=== PATIENT | female | born 1970 | race Caucasian/White ===

== ENCOUNTER 2019-06-04 18:17 | Observation (INO) ==
[2019-06-04 18:31] LABS: Basophils # 0.1 K/mm3 (0-0.2); Basophils % 0.8 % (0.1-2.0); Eosinophils # 0.2 K/mm3 (0.0-0.4); Eosinophils % 2.3 % (0.1-12.0); Hematocrit 40.3 % (37.0-47.0); Hemoglobin 13.3 g/dL (12.2-16.2); Lymphocytes # 4.5 K/mm3 (0.7-4.5); Lymphocytes % 50.1 % (10-50); Mean Corpuscular HGB Conc 32.9 g/dL (31.8-35.4); Mean Corpuscular Volume 78.1 fl (81-99); Mean Platelet Volume 8.6 fl (7.4-10.4); Monocytes # 0.6 K/mm3 (0.1-1.0); Monocytes % 6.1 % (1.7-9.3); Neutrophils # 3.7 K/mm3 (1.8-7.8); Neutrophils % 40.8 % (37.0-80.0); Platelet Count 274 K/mm3 (142-424); Red Blood Count 5.16 M/mm3 (4.20-5.40); Red Cell Distribution Width 14.2 % (11.5-17.5)
[2019-06-04 18:42] LABS: Anion Gap 13.9 mEq/L (5-15); Blood Urea Nitrogen 11 mg/dL (7-18); Calcium 8.8 mg/dL (8.5-10.1); Carbon Dioxide 27 mmol/L (21.0-32.0); Chloride 106 mmol/L (98-107); Glucose 110 mg/dL (74-106); Sodium 143 mmol/L (137-145)
[2019-06-04 18:57] LABS: Eosinophils % 2 % (0-3); Lymphocytes % 50 % (10-50); Monocytes % 6 % (2-9); Neutrophils % 42 % (42-76); Total Cells Counted 100
[2019-06-04 18:58] LABS: RBC Morphology Normal
--- NOTE | 2019-06-04 19:26 | Emergency Department Note ---
ED Disposition Clinical Impression: Chest pain Qualifiers: Chest pain type: unspecified Qualified Code(s): R07.9 - Chest pain, unspecified Disposition: Admitted as Observation Condition on Discharge: Fair - Critical Care Critical Care Time: No Attestation: On 06/04/19, the high probability of a clinically significant, sudden or life threatening deterioration of the following system(s) required my full and direct attention, intervention and personal management. The time I documented below is in addition to time spent performing reported procedures but includes the following listed in this critical care notation. Medical Decision Making - Abhilash Inquiry Pt receiving controlled substance: No Abhilash was queried for this patient: No Vital Signs: 06/04/19 18:20 06/04/19 19:48 06/04/19 21:44 Temperature 98 F 98.0 F Temperature Source Oral Oral Pulse Rate 89 Pulse Rate [Right] 61 65 Respiratory Rate 20 18 16 Blood Pressure 135/70 Blood Pressure [Right Arm] 179/97 H 157/95 H Blood Pressure Mean [Right Arm] 124 115 Blood Pressure Source Automatic Cuff Blood Pressure Source [Right Arm] Automatic Cuff Blood Pressure Position Sitting Blood Pressure Position [Right Arm] Sitting 02 Sat by Pulse Oximetry 96 97 Oxygen Delivery Method Room Air Room Air - Lab Data Lab Results 06/04/19 18:15: WBC 9.0, RBC 5.16, Hgb 13.3, Hct 40.3, MCV 78.1 L, MCH 25.7 L, MCHC 32.9, RDW 14.2, Plt Count 274, MPV 8.6, Neut % (Auto) 40.8, Lymph % (Auto) 50.1 H, [place] % (Auto) 6.1, Eos % (Auto) 2.3, Baso % (Auto) 0.8, Neut # (Auto) 3.7, Lymph # (Auto) 4.5, [place] # (Auto) 0.6, Eos # (Auto) 0.2, Baso # (Auto) 0.1, Total Counted 100, Neutrophils % (Manual) 42, Lymphocytes % (Manual) 50, Monocytes % (Manual) 6, Eosinophils % (Manual) 2, Platelet Estimate Normal, RBC Morphology Normal 06/04/19 18:15: Sodium 143, Potassium 3.9, Chloride 106, Carbon Dioxide 27, Anion Gap 13.9, BUN 11, Creatinine 0.91, Estimated Creat Clear 95, Estimated GFR 66, Est GFR ( Amer) 80, Glucose 110 H, Calcium 8.8, Troponin I < 0.02 06/04/19 19:55: Urine Color Yellow, Urine Appearance Clear, Urine pH 6.0, Ur Specific [place] 1.015, Urine Protein Negative, Urine Glucose (UA) Negative, Urine Ketones Negative, Urine Blood Trace-l, Urine Nitrate Negative, Urine Bilirubin Negative, Urine Urobilinogen 0.2, Ur Leukocyte Esterase Trace, Urine WBC 3-5, Ur Squamous Epith Cells 3-5, Urine Bacteria Trace Result diagrams: 06/04/19 18:15 06/04/19 18:15 Orders (Tests/Meds): ED MEDICATIONS Generic Name Dose Route Start Last Admin Trade Name Freq PRN Reason Stop Dose Admin Sodium Chloride 1,000 mls @ 125 mls/hr 06/04/19 21:42 Sod Chlor 0.9% 1000ml Bag IV 07/04/19 21:41 .Q8H WESLEY Discontinued Medications Generic Name Dose Route Start Last Admin Trade Name Freq PRN Reason Stop Dose Admin Acetaminophen 650 mg 06/04/19 19:44 06/04/19 19:51 Acetaminophen 325mg Tab PO 06/04/19 19:45 650 mg ONCE ONE Administration Aspirin 324 mg 06/04/19 18:24 06/04/19 18:33 Aspirin 81mg Chewable Tablet PO 06/04/19 18:25 324 mg ONCE ONE Administration Belladonna Alkaloids 60 ml 06/04/19 18:48 06/04/19 18:57 Gi Cocktail 60ml Udc PO 06/04/19 18:49 60 ml ONCE ONE Administration Famotidine 20 mg 06/04/19 18:48 06/04/19 18:57 Pepcid 20mg Tablet PO 06/04/19 18:49 20 mg ONCE ONE Administration Ibuprofen 400 mg 06/04/19 19:44 06/04/19 19:49 Motrin 400mg Tablet PO 06/04/19 19:45 Not Given ONCE ONE Ibuprofen 600 mg 06/04/19 19:49 06/04/19 19:51 Motrin 600mg Tablet PO 06/04/19 19:50 600 mg ONCE ONE Administration ORDERS Category Date Time Status XR chest 2V Stat Exams 06/04/19 18:23 Taken Basic Metabolic Panel AMLAB Lab 06/05/19 06:00 Ordered Complete Blood Count Auto Diff AMLAB Lab 06/05/19 06:00 Ordered Lipid Panel AMLAB Lab 06/05/19 06:00 Ordered Troponin I Q3H Lab 06/04/19 21:40 Received Troponin I Q3H Lab 06/05/19 00:30 Ordered ECG Request by /Cm Stat Y 06/04/19 18:23 Stop Req Medical Decision Narrative: In summary patient is a well-appearing 49-year-old female who presents to the emergency department for evaluation of chest pain. Patient is mildly hypertensive, but otherwise vital signs are within normal limits. Patient has pain to her epigastrium, and pain on chest wall palpation. Given this differential diagnosis includes ACS, costochondritis, GERD, pneumonia. Appropriate work-up initiated putting CBC, CMP, abdominal, chest x-ray, EKG. Patient given GI cocktail, aspirin, and famotidine for symptomatic control. KG shows normal sinus rhythm, no ST elevation, depression, or QT prolongation noted. Patient's initial troponin returns and shows no elevation. Patient's initial labs returned and are nonactionable. On reevaluation patient states that her chest pain has not improved. Patient given oral acetaminophen, and ibuprofen for pain control. X-ray returned showing no evidence of cardiopulmonary disease. On reevaluation patient states her pain has not resolved, or improved at all. Patient continues to look anxious. Patient states that she wants to stay here in the emergency department. After consultation, Dr. Benjamin agreed to admit the patient for her chest pain. General Adult HPI - General Chief complaint: Chest Pain Stated complaint: CP Time Seen by Provider: 06/04/19 18:35 Mode of Arrival: EMS Limitations: No Limitations Description of Symptoms (Recalled from ER Triage Doc. by RN): C/O CP that has lasted all day, denies NV, dizziness or soa. - History of Present Illness HPI narrative: Patient is a 49-year-old female who presents the emergency department for evaluation of chest pain. Vital signs within normal limits. Differential diagnosis includes ACS, pneumonia, GERD. This ordered CBC, CMP, opponent panel, chest x-ray, and EKG. EKG returned showing normal sinus rhythm, no ST elevation, depression, or QT prolongation. X-ray returned showing no evidence of cardiopulmonary disease. Labs returned and are nonactionable. Patient's initial troponin shows no elevation. Will await repeat troponin. - Related Data Allergies Allergy/AdvReac Type Severity Reaction Status Date / Time metoclopramide [From Reglan] Allergy Verified 06/04/19 18:23 Penicillins Allergy Verified 06/04/19 18:23 promethazine Allergy Verified 06/04/19 18:23 [facility] History - Hepatitis A Screen Drug use history?: No High risk sexual behaviors?: No History of sexually transmitted infection?: No Currently employed?: No Childcare worker?: No Do you have indoor plumbing?: Yes Do you have electricity?: Yes Attestation statement:: This patient has been screened for Hepatitis A risk factors. I have reviewed the patient's past medical history: Yes ROS Obtained: Yes All systems reviewed & no additional complaints Physical Exam - General General appearance: alert, in no apparent distress - Head Head exam: atraumatic, normocephalic - Chest Chest inspection: Present: tenderness (Chest wall tenderness on palpation) - Respiratory Respiratory exam: Present: normal lung sounds bilaterally, respiratory distress - Cardiovascular Cardiovascular exam: Present: regular rate, normal rhythm - Abdominal Exam Abdominal exam: Present: soft, tenderness Abdominal tenderness: Present: epigastrium - Neurological Exam Neurological exam: Present: alert, oriented X3 - Psychiatric Psychiatric exam: Present: anxious
[2019-06-04 21:24] LABS: Microscopic, Urine URINE MICROSCOPIC (MICROSCOPIC)
[2019-06-04 21:31] LABS: Appearance,Urine CLEAR (Clear); Bilirubin,Urine Negative (Negative); Blood, Urine TRACE-L (Negative); Color,Urine YELLOW (Yellow); Glucose,Urine (UA) Negative (Negative); Ketones,Urine Negative (Negative); Leukocyte Esterase,Urine TRACE (Negative); Protein,Urine Negative (Negative); Specific Gravity, Urine 1.015 (1.005-1.030); Urobilinogen,Urine 0.2 EU/dl (0.2)
[2019-06-04 21:44] LABS: Bacteria,Urine Trace /lpf
--- NOTE | 2019-06-04 22:37 | History & Physical Report ---
*Admission Date: 06/04/19 *Chief complaint: chest pain *History of present illness: this wf was sent from [facility] In summary patient is a well-appearing 49-year-old female who presents to the emergency department for evaluation of chest pain. Patient is mildly hypertensive, but otherwise vital signs are w ithin normal limits. Patient has pain to her epigastrium, and pain on chest wall palpation. Given this differential diagnosis includes ACS, costochondritis, GERD, pneumonia. Appropriate work-up initiated putting CBC, CMP, abdominal, chest x-ray, EKG. Patient given GI cocktail, aspirin, and famotidine for symptomatic control. KG shows normal sinus rhythm, no ST elevation, depression, or QT prolongation noted. Patient's initial troponin returns and shows no elevation. Patient's initial labs returned and are nonactionable. On reevaluation patient states that her chest pain has not improved. Patient given oral acetaminophen, and ibuprofen for pain control. X-ray returned showing no evidence of cardiopulmonary disease. On reevaluation patient states her pain has not resolved, or improved at all. pt was admitted for [facility] History I have reviewed the patient's past medical history: Yes Medical History: Reports:: Congestive Heart Failure Denies:: Cancer, Diabetes Mellitus Type 1 (Borderline diabetic checking BS ACHS bs 115-120 at home.), Diabetes Mellitus Type 2, MRSA *Have you ever received a pneumonia vaccine?: No (PT WANTS) *Have you received a flu vaccine this season?: Yes Other Medical History: Reports: Anemia, Arthritis, Hypothyroidism, Sinus Problems Laterality Cases: Bilateral: Other Other Surgeries: Yes: Hysterectomy-Total Amputation: No Fractures: Yes (ankles and wrist 2019) - *Social History Educational Level: Attended High School Smoking Status: Never smoker Alcohol Intake: never *Occupational Status:: disabled Housing: assisted living facility Household Members: other *Travel in the last 8 weeks: None Family Hx:: Asthma, Diabetes, Hypertension, Other Review of Systems - Review of Systems Review of systems:: pertinent systems reviewed and negative unless documented below - Constitutional Denies headache(s) - Eyes Denies change in vision - ENT Denies sore throat - *Cardiovascular Reports chest pain at rest, Denies shortness of breath - *Respiratory Denies cough - *Gastrointestinal Denies abdominal pain - *Genitourinary Denies blood in urine - *Musculoskeletal Denies joint pain - Integumentary/Breasts Denies rash - *Neurologic Denies seizure-like activity - Psychiatric Denies anxiety Meds Home Medications Medication Instructions Recorded Confirmed Type Atorvastatin Calcium [Atorvastatin 10 mg PO DAILY 06/04/19 06/04/19 History 10mg Tab] Fluoxetine HCl 40 mg PO DAILY 06/04/19 06/04/19 History Levothyroxine Sodium 25 mcg PO DAILY 06/04/19 06/04/19 History [Levothyroxine 25mcg (0.025mg) Tab] Loratadine [Claritin 10mg Tablet] 10 mg PO HS 06/04/19 06/04/19 History Melatonin 5 mg PO HS 06/04/19 06/04/19 History Metoprolol Tartrate 50 mg PO BID 06/04/19 06/04/19 History OLANZapine [Olanzapine] 10 mg PO DAILY 06/04/19 06/04/19 History Oxybutynin Chloride 10 mg PO DAILY 06/04/19 06/04/19 History Prazosin HCl [Minipres 1mg capsule] 1 mg PO HS 06/04/19 06/04/19 History Allergies Allergy/AdvReac Type Severity Reaction Status Date / Time Cephalosporins Allergy Rash Verified 06/04/19 22:58 citalopram [From Celexa] Allergy Rash Verified 06/04/19 21:57 levofloxacin [From Levaquin] Allergy Unknown Verified 06/04/19 22:58 allergy reaction metoclopramide [From Reglan] Allergy Rash Verified 06/04/19 21:57 Penicillins Allergy Rash Verified 06/04/19 21:57 promethazine Allergy Rash Verified 06/04/19 21:57 quetiapine [From Seroquel] Allergy Verified 06/04/19 22:58 Exam Vital signs and Labs for Last 24 Hours: Temp Pulse Resp BP Pulse Ox 99.0 F 63 16 151/96 H 96 06/04/19 21:59 06/04/19 21:59 06/04/19 21:59 06/04/19 21:59 06/04/19 21:59 Laboratory Results - last 24 hr 06/04/19 18:15: WBC 9.0, RBC 5.16, Hgb 13.3, Hct 40.3, MCV 78.1 L, MCH 25.7 L, MCHC 32.9, RDW 14.2, Plt Count 274, MPV 8.6, Neut % (Auto) 40.8, Lymph % (Auto) 50.1 H, [place] % (Auto) 6.1, Eos % (Auto) 2.3, Baso % (Auto) 0.8, Neut # (Auto) 3.7, Lymph # (Auto) 4.5, [place] # (Auto) 0.6, Eos # (Auto) 0.2, Baso # (Auto) 0.1, Total Counted 100, Neutrophils % (Manual) 42, Lymphocytes % (Manual) 50, Monocytes % (Manual) 6, Eosinophils % (Manual) 2, Platelet Estimate Normal, RBC Morphology Normal 06/04/19 18:15: Sodium 143, Potassium 3.9, Chloride 106, Carbon Dioxide 27, Anion Gap 13.9, BUN 11, Creatinine 0.91, Estimated Creat Clear 95, Estimated GFR 66, Est GFR ( Amer) 80, Glucose 110 H, Calcium 8.8, Troponin I < 0.02 06/04/19 19:55: Urine Color Yellow, Urine Appearance Clear, Urine pH 6.0, Ur Specific [place] 1.015, Urine Protein Negative, Urine Glucose (UA) Negative, Urine Ketones Negative, Urine Blood Trace-l, Urine Nitrate Negative, Urine Bilirubin Negative, Urine Urobilinogen 0.2, Ur Leukocyte Esterase Trace, Urine WBC 3-5, Ur Squamous Epith Cells 3-5, Urine Bacteria Trace I & O for Last 24 hours: Intake & Output 06/02/19 06/03/19 06/04/19 06/05/19 11:59 11:59 11:59 11:59 Intake Total 1000 / 1000 Balance 1000 / 1000 Weight 173 lb 8 oz - Constitutional no acute distress, obese - *Routine HEENT Exam Head: Present: normocephalic Eye: Present: EOMI, PERRL ENT: Present: mucous membranes dry - *Routine Neck Exam Present: supple. Absent: JVD - *Routine Respiratory Exam Present: CTA bilaterally - *Routine Cardiovascular Exam Present: RRR, murmur - *Routine Abdominal Exam Present: soft - *Routine Extremities Exam Present: cyanosis. Absent: calf tenderness - *Routine Skin Exam Present: intact - *Routine Neurological Exam Present: alert, CN II-XII intact - Routine Psychiatric Exam Present: normal affect Assessment and Plan (1) Chest pain Current visit: Yes Status: Acute Qualifiers: Chest pain type: unspecified Qualified Code(s): R07.9 - Chest pain, unspecified Category: Medical Code(s): R07.9 - Chest pain, unspecified (2) Obesity (BMI 30.0-34.9) Current visit: Yes Status: Acute Category: Medical Code(s): E66.9 - Obesity, unspecified (3) Hypothyroidism Current visit: Yes Status: Acute Qualifiers: Hypothyroidism type: acquired Qualified Code(s): E03.9 - Hypothyroidism, unspecified Category: Medical Code(s): E03.9 - Hypothyroidism, unspecified (4) HTN (hypertension) Current visit: Yes Status: Acute Qualifiers: Hypertension type: essential hypertension Qualified Code(s): I10 - Essential (primary) hypertension Category: Medical Code(s): I10 - Essential (primary) hypertension
[2019-06-05 06:02] LABS: Basophils # 0.1 K/mm3 (0-0.2); Basophils % 0.9 % (0.1-2.0); Eosinophils # 0.1 K/mm3 (0.0-0.4); Eosinophils % 2.2 % (0.1-12.0); Hematocrit 35.4 % (37.0-47.0); Lymphocytes # 2.7 K/mm3 (0.7-4.5); Lymphocytes % 51.9 % (10-50); Mean Corpuscular HGB Conc 31.7 g/dL (31.8-35.4); Mean Corpuscular Volume 79.1 fl (81-99); Mean Platelet Volume 8.3 fl (7.4-10.4); Monocytes # 0.3 K/mm3 (0.1-1.0); Monocytes % 6.1 % (1.7-9.3); Neutrophils % 38.9 % (37.0-80.0); Platelet Count 204 K/mm3 (142-424); Red Blood Count 4.47 M/mm3 (4.20-5.40); Red Cell Distribution Width 14.1 % (11.5-17.5); White Blood Count 5.2 K/mm3 (4.8-10.8)
[2019-06-05 06:24] LABS: Hemoglobin 11.3 g/dL (12.2-16.2)
[2019-06-05 06:42] LABS: Anion Gap 10.8 mEq/L (5-15); Calcium 8.1 mg/dL (8.5-10.1); Chol/HDL Ratio 2.7 (1-3.5)
--- NOTE | 2019-06-05 07:30 | Pharmacy Consult Notes ---
[facility] Pharmacy VTE Monitoring - Patient Demographics Admission date: 06/04/19 Report Date: 06/05/19 Time: 07:29 Allergies/Adverse Reactions: Patient Allergies Cephalosporins Allergy (Verified 06/04/19 22:58) Rash citalopram [From Celexa] Allergy (Verified 06/04/19 21:57) Rash levofloxacin [From Levaquin] Allergy (Verified 06/04/19 22:58) Unknown allergy reaction metoclopramide [From Reglan] Allergy (Verified 06/04/19 21:57) Rash Penicillins Allergy (Verified 06/04/19 21:57) Rash promethazine Allergy (Verified 06/04/19 21:57) Rash quetiapine [From Seroquel] Allergy (Verified 06/04/19 22:58) Height: 1.52 m Weight: 80.399 kg Patient Problems: Current Active Problems Chest pain (Acute) Obesity (BMI 30.0-34.9) (Acute) Hypothyroidism (Acute) HTN (hypertension) (Acute) - VTE Risk Labs: VTE Related Lab Results Hgb 11.3 g/dL (12.2-16.2) L D 06/05/19 05:38 Hct 35.4 % (37.0-47.0) L 06/05/19 05:38 Plt Count 204 K/mm3 (142-424) D 06/05/19 05:38 BUN 10 mg/dL (7-18) 06/05/19 05:38 Creatinine 0.85 mg/dL (0.55-1.02) 06/05/19 05:38 Estimated Creat Clear 103 mL/min (50-200) 06/05/19 05:38 VTE Score: 6 VTE Risk Level: Moderate Risk - Prophylaxis VTE Prophylaxis Ordered?: Yes Types of VTE Prophylaxis: TEDS Knee High Location of Applied Device: Bilateral Lower Extremeties
--- NOTE | 2019-06-05 08:15 | Consult Report ---
History of Present Illness Consult date: 06/05/19 Requesting physician: Bin Benjamin Consult reason: chest pain Chief complaint: chest pain Additional Medical History:: 1. HTN 2. Hyperlipidemia 3. DM 4. FH of CAD in mother at age 50 5. Mental impairment 6. Chest pain, 05/2019 A. EKG and troponins normal. History of present illness: 49-year-old white female sent from [facility] for evaluation of chest pain. Patient relates symptoms unabated overnight with recent history of vomiting. She acknowledges reproduction of chest pain with palpation of the chest wall or with deep breathing. She denies any recent falls or chest trauma. She has a history of hypertension, hyperlipidemia and prediabetes. Her mother had a heart attack at age 50. The patient is not a smoker. Her troponins have been normal x3 and EKG is sinus rhythm with no acute ST segment changes. She denies any prior cardiac history. Patient is new to this area as she was recently transferred from [facility] to [facility] yesterday. [facility] History Medical History: Reports:: Congestive Heart Failure Denies:: Cancer, Diabetes Mellitus Type 1 (Borderline diabetic checking BS ACHS bs 115-120 at home.), Diabetes Mellitus Type 2, MRSA *Have you ever received a pneumonia vaccine?: No (PT WANTS) *Have you received a flu vaccine this season?: Yes Other Medical History: Reports: Anemia, Arthritis, Hypothyroidism, Sinus Problems Laterality Cases: Bilateral: Other Other Surgeries: Yes: Hysterectomy-Total Amputation: No Fractures: Yes (ankles and wrist 2019) - *Social History Educational Level: Attended High School Smoking Status: Never smoker Alcohol Intake: never *Occupational Status:: disabled Housing: assisted living facility Household Members: other *Travel in the last 8 weeks: None Family Hx:: Asthma, Diabetes, Hypertension, Other Meds Home Medications Medication Instructions Recorded Confirmed Type Atorvastatin Calcium [Atorvastatin 10 mg PO DAILY 06/04/19 06/04/19 History 10mg Tab] Fluoxetine HCl 40 mg PO DAILY 06/04/19 06/04/19 History Levothyroxine Sodium 25 mcg PO DAILY 06/04/19 06/04/19 History [Levothyroxine 25mcg (0.025mg) Tab] Loratadine [Claritin 10mg Tablet] 10 mg PO HS 06/04/19 06/04/19 History Melatonin 5 mg PO HS 06/04/19 06/04/19 History Metoprolol Tartrate 50 mg PO BID 06/04/19 06/04/19 History OLANZapine [Olanzapine] 10 mg PO DAILY 06/04/19 06/04/19 History Oxybutynin Chloride 10 mg PO DAILY 06/04/19 06/04/19 History Prazosin HCl [Minipres 1mg capsule] 1 mg PO HS 06/04/19 06/04/19 History Allergies Allergy/AdvReac Type Severity Reaction Status Date / Time Cephalosporins Allergy Rash Verified 06/04/19 22:58 citalopram [From Celexa] Allergy Rash Verified 06/04/19 21:57 levofloxacin [From Levaquin] Allergy Unknown Verified 06/04/19 22:58 allergy reaction metoclopramide [From Reglan] Allergy Rash Verified 06/04/19 21:57 Penicillins Allergy Rash Verified 06/04/19 21:57 promethazine Allergy Rash Verified 06/04/19 21:57 quetiapine [From Seroquel] Allergy Verified 06/04/19 22:58 Review of Systems - Review of Systems Review of systems:: pertinent systems reviewed and negative unless documented below - *Cardiovascular Reports chest pain, Reports shortness of breath with activity - *Respiratory Reports cough - *Gastrointestinal Reports nausea, Reports vomiting, Denies loose stools - *Genitourinary Denies blood in urine - *Musculoskeletal Denies joint pain, Denies back pain - *Neurologic Denies headache(s), Denies seizure-like activity Exam Vital signs and Labs for Last 24 Hours: Temp Pulse Resp BP Pulse Ox 97.5 F L 58 L 16 127/73 98 06/05/19 04:00 06/05/19 04:00 06/05/19 04:00 06/05/19 04:00 06/05/19 04:00 Laboratory Results - last 24 hr 06/04/19 18:15: WBC 9.0, RBC 5.16, Hgb 13.3, Hct 40.3, MCV 78.1 L, MCH 25.7 L, MCHC 32.9, RDW 14.2, Plt Count 274, MPV 8.6, Neut % (Auto) 40.8, Lymph % (Auto) 50.1 H, [place] % (Auto) 6.1, Eos % (Auto) 2.3, Baso % (Auto) 0.8, Neut # (Auto) 3.7, Lymph # (Auto) 4.5, [place] # (Auto) 0.6, Eos # (Auto) 0.2, Baso # (Auto) 0.1, Total Counted 100, Neutrophils % (Manual) 42, Lymphocytes % (Manual) 50, Monocytes % (Manual) 6, Eosinophils % (Manual) 2, Platelet Estimate Normal, RBC Morphology Normal 06/04/19 18:15: Sodium 143, Potassium 3.9, Chloride 106, Carbon Dioxide 27, Anion Gap 13.9, BUN 11, Creatinine 0.91, Estimated Creat Clear 95, Estimated GFR 66, Est GFR ( Amer) 80, Glucose 110 H, Calcium 8.8, Troponin I < 0.02 06/04/19 19:55: Urine Color Yellow, Urine Appearance Clear, Urine pH 6.0, Ur Specific [place] 1.015, Urine Protein Negative, Urine Glucose (UA) Negative, Urine Ketones Negative, Urine Blood Trace-l, Urine Nitrate Negative, Urine Bilirubin Negative, Urine Urobilinogen 0.2, Ur Leukocyte Esterase Trace, Urine WBC 3-5, Ur Squamous Epith Cells 3-5, Urine Bacteria Trace 06/04/19 21:40: Troponin I < 0.02 06/05/19 00:24: Troponin I < 0.02 06/05/19 05:38: WBC 5.2 D, RBC 4.47, Hgb 11.3 L D, Hct 35.4 L, MCV 79.1 L, MCH 25.1 L, MCHC 31.7 L, RDW 14.1, Plt Count 204 D, MPV 8.3, Neut % (Auto) 38.9, Lymph % (Auto) 51.9 H, [place] % (Auto) 6.1, Eos % (Auto) 2.2, Baso % (Auto) 0.9, Neut # (Auto) 2.0, Lymph # (Auto) 2.7, [place] # (Auto) 0.3, Eos # (Auto) 0.1, Baso # (Auto) 0.1 06/05/19 05:38: Sodium 145, Potassium 3.8, Chloride 111 H, Carbon Dioxide 27, Anion Gap 10.8, BUN 10, Creatinine 0.85, Estimated Creat Clear 103, Estimated GFR 71, Est GFR ( Amer) 86, Glucose 95, Calcium 8.1 L, Triglycerides 99, Cholesterol 109 L, LDL Cholesterol 49, VLDL Cholesterol 20, HDL Cholesterol 40, Cholesterol/HDL Ratio 2.7 I & O for Last 24 hours: Intake & Output 06/02/19 06/03/19 06/04/19 06/05/19 11:59 11:59 11:59 11:59 Intake Total 1774 / 1774 Output Total 650 / 650 Balance 1124 / 1124 Weight 177 lb 4 oz - *Routine HEENT Exam Head: Present: normocephalic Eye: Present: EOMI, PERRL ENT: Present: mucous membranes moist - *Routine Neck Exam Present: supple. Absent: JVD, carotid bruit - *Routine Respiratory Exam Present: CTA bilaterally. Absent: accessory muscle use, rales, rhonchi, wheezes - *Routine Cardiovascular Exam Present: RRR. Absent: murmur, gallop, rubs - *Routine Abdominal Exam Present: soft. Absent: tenderness, distended, guarding - *Routine Extremities Exam Absent: edema, calf tenderness - *Routine Neurological Exam Present: alert, oriented X3, moving all extremities Assessment and Plan (1) Chest pain Current visit: Yes Status: Acute Qualifiers: Chest pain type: unspecified Qualified Code(s): R07.9 - Chest pain, unspecified Category: Medical Code(s): R07.9 - Chest pain, unspecified (2) Obesity (BMI 30.0-34.9) Current visit: Yes Status: Acute Category: Medical Code(s): E66.9 - Obesity, unspecified (3) Hypothyroidism Current visit: Yes Status: Acute Qualifiers: Hypothyroidism type: acquired Qualified Code(s): E03.9 - Hypothyroidism, unspecified Category: Medical Code(s): E03.9 - Hypothyroidism, unspecified (4) HTN (hypertension) Current visit: Yes Status: Acute Qualifiers: Hypertension type: essential hypertension Qualified Code(s): I10 - Essential (primary) hypertension Category: Medical Code(s): I10 - Essential (primary) hypertension - Assessment and plan all Dx Assessment and Plan for all problems:: 1. Prolonged Chest pain, atypical with normal EKG and troponins X 3 after >12 hrs of pain. Will obtain echo prior to discharge home with plans for outpatient testing in the near future. Continue metoprolol and add ASA 81 mg daily. 2. HTN, controlled on current meds. 3. HLD, on statin 4. Hypothyroidism, on replacement.
[2019-06-05 08:44] VITALS: BP 131/75
[2019-06-05 08:49] LABS: Eosinophils % 1 % (0-3); Lymphocytes % 55 % (10-50); Monocytes % 7 % (2-9); Neutrophils % 37 % (42-76); Total Cells Counted 100
[2019-06-05 08:50] LABS: Hypochromasia 1+
--- NOTE | 2019-06-05 08:50 | Discharge Summary ---
General - General Admission date:: 06/04/19 Discharge date: 06/05/19 HPI HPI: 49-year-old female patient resting in bed quietly, she reports her chest pain is better this morning. Informed she will be discharged, she is agreeable to this this wf was sent from [facility] In summary patient is a well-appearing 49-year-old female who presents to the emergency department for evaluation of chest pain. Patient is mildly hypertensive, but otherwise vital signs are within normal limits. Patient has pain to her epigastrium, and pain on chest wall palpation. Given this differential diagnosis includes ACS, costochondritis, GERD, pneumonia. Appropriate work-up initiated putting CBC, CMP, abdominal, chest x-ray, EKG. Patient given GI cocktail, aspirin, and famotidine for symptomatic control. KG shows normal sinus rhythm, no ST elevation, depression, or QT prolongation noted. Patient's initial troponin returns and shows no elevation. Patient's initial labs returned and are nonactionable. On reevaluation patient states that her chest pain has not improved. Patient given oral acetaminophen, and ibuprofen for pain control. X-ray returned showing no evidence of cardiopulmonary disease. On reevaluation patient states her pain has not resolved, or improved at all. pt was admitted for eval (Per Dr. Starr) Hospital Course Hospital Course: this wf was sent from [facility] In summary patient is a well-appearing 49-year-old female who presents to the emergency department for evaluation of chest pain. Patient is mildly hypertensive, but otherwise vital signs are within normal limits. Patient has pain to her epigastrium, and pain on chest wall palpation. Given this differential diagnosis includes ACS, costochondritis, GERD, pneumonia. Appropriate work-up initiated putting CBC, CMP, abdominal, chest x-ray, EKG. Patient given GI cocktail, aspirin, and famotidine for symptomatic control. KG shows normal sinus rhythm, no ST elevation, depression, or QT prolongation noted. Patient's initial troponin returns and shows no elevation. Patient's initial labs returned and are nonactionable. On reevaluation patient states that her chest pain has not improved. Patient given oral acetaminophen, and ibuprofen for pain control. X-ray returned showing no evidence of cardiopulmonary disease. On reevaluation patient states her pain has not resolved, or improved at all. pt was admitted for eval (Per Dr. Starr). 06/05/2019 CXR: IMPRESSION: No acute findings. Dictated by: Dr. Doran, Troponins have been negative, EKG has been normal. She will have an echocardi ogram today before being discharged back to [place]. She will follow-up with PCP this week and cardiology in the near future Objective Vital signs: Temp Pulse Resp BP Pulse Ox 97.5 F L 58 L 16 131/75 98 06/05/19 08:00 06/05/19 08:00 06/05/19 08:00 06/05/19 08:00 06/05/19 08:00 no acute distress - *Routine HEENT Exam Head: Present: normocephalic, atraumatic. Absent: tenderness of temporal artery Eye: Present: EOMI, PERRL, normal accommodation. Absent: periorbital tenderness ENT: Present: mucous membranes moist. Absent: sinus tenderness - *Routine Neck Exam Present: full ROM, trachea midline. Absent: JVD, tracheal deviation - Routine Chest/Breast/Axilla Exam Chest wall: Present: tenderness - *Routine Respiratory Exam Present: CTA bilaterally. Absent: accessory muscle use - *Routine Cardiovascular Exam Present: RRR - *Routine Abdominal Exam Present: soft, normoactive bowel sounds. Absent: tenderness, firm - *Routine Extremities Exam Present: full ROM, pulses intact. Absent: calf tenderness - Routine Back/Spine/Pelvis Exam Back/Spine: Present: full ROM. Absent: CVA tenderness - *Routine Skin Exam Present: intact, warm. Absent: wounds - *Routine Neurological Exam Present: alert, oriented X3, CN II-XII intact. Absent: pronator drift - Routine Psychiatric Exam Present: normal affect Results Labs on day of discharge: Labs from last 24 hours 06/05/19 06/05/19 06/05/19 05:38 05:38 00:24 WBC 5.2 D RBC 4.47 Hgb 11.3 L D Hct 35.4 L MCV 79.1 L MCH 25.1 L MCHC 31.7 L RDW 14.1 Plt Count 204 D MPV 8.3 Neut % (Auto) 38.9 Lymph % (Auto) 51.9 H [place] % (Auto) 6.1 Eos % (Auto) 2.2 Baso % (Auto) 0.9 Neut # (Auto) 2.0 Lymph # (Auto) 2.7 [place] # (Auto) 0.3 Eos # (Auto) 0.1 Baso # (Auto) 0.1 Total Counted Neutrophils % (Manual) Lymphocytes % (Manual) Monocytes % (Manual) Eosinophils % (Manual) Platelet Estimate RBC Morphology Sodium 145 Potassium 3.8 Chloride 111 H Carbon Dioxide 27 Anion Gap 10.8 BUN 10 Creatinine 0.85 Estimated Creat Clear 103 Estimated GFR 71 Est GFR ( Amer) 86 Glucose 95 Calcium 8.1 L Troponin I < 0.02 Triglycerides 99 Cholesterol 109 L LDL Cholesterol 49 VLDL Cholesterol 20 HDL Cholesterol 40 Cholesterol/HDL Ratio 2.7 Urine Color Urine Appearance Urine pH Ur Specific [place] Urine Protein Urine Glucose (UA) Urine Ketones Urine Blood Urine Nitrate Urine Bilirubin Urine Urobilinogen Ur Leukocyte Esterase Urine WBC Ur Squamous Epith Cells Urine Bacteria 06/04/19 06/04/19 06/04/19 21:40 19:55 18:15 WBC RBC Hgb Hct MCV MCH MCHC RDW Plt Count MPV Neut % (Auto) Lymph % (Auto) [place] % (Auto) Eos % (Auto) Baso % (Auto) Neut # (Auto) Lymph # (Auto) [place] # (Auto) Eos # (Auto) Baso # (Auto) Total Counted Neutrophils % (Manual) Lymphocytes % (Manual) Monocytes % (Manual) Eosinophils % (Manual) Platelet Estimate RBC Morphology Sodium 143 Potassium 3.9 Chloride 106 Carbon Dioxide 27 Anion Gap 13.9 BUN 11 Creatinine 0.91 Estimated Creat Clear 95 Estimated GFR 66 Est GFR ( Amer) 80 Glucose 110 H Calcium 8.8 Troponin I < 0.02 < 0.02 Triglycerides Cholesterol LDL Cholesterol VLDL Cholesterol HDL Cholesterol Cholesterol/HDL Ratio Urine Color Yellow Urine Appearance Clear Urine pH 6.0 Ur Specific [place] 1.015 Urine Protein Negative Urine Glucose (UA) Negative Urine Ketones Negative Urine Blood Trace-l Urine Nitrate Negative Urine Bilirubin Negative Urine Urobilinogen 0.2 Ur Leukocyte Esterase Trace Urine WBC 3-5 Ur Squamous Epith Cells 3-5 Urine Bacteria Trace 06/04/19 18:15 WBC 9.0 RBC 5.16 Hgb 13.3 Hct 40.3 MCV 78.1 L MCH 25.7 L MCHC 32.9 RDW 14.2 Plt Count 274 MPV 8.6 Neut % (Auto) 40.8 Lymph % (Auto) 50.1 H [place] % (Auto) 6.1 Eos % (Auto) 2.3 Baso % (Auto) 0.8 Neut # (Auto) 3.7 Lymph # (Auto) 4.5 [place] # (Auto) 0.6 Eos # (Auto) 0.2 Baso # (Auto) 0.1 Total Counted 100 Neutrophils % (Manual) 42 Lymphocytes % (Manual) 50 Monocytes % (Manual) 6 Eosinophils % (Manual) 2 Platelet Estimate Normal RBC Morphology Normal Sodium Potassium Chloride Carbon Dioxide Anion Gap BUN Creatinine Estimated Creat Clear Estimated GFR Est GFR ( Amer) Glucose Calcium Troponin I Triglycerides Cholesterol LDL Cholesterol VLDL Cholesterol HDL Cholesterol Cholesterol/HDL Ratio Urine Color Urine Appearance Urine pH Ur Specific [place] Urine Protein Urine Glucose (UA) Urine Ketones Urine Blood Urine Nitrate Urine Bilirubin Urine Urobilinogen Ur Leukocyte Esterase Urine WBC Ur Squamous Epith Cells Urine Bacteria - Additional Comments Rounded with Dr. Benjamin, all orders per Dr. Benjamin Cardiology has seen and recommends: 1. Prolonged Chest pain, atypical with normal EKG and troponins X 3 after >12 hrs of pain. Will obtain echo prior to discharge home with plans for outpatient testing in the near future. Continue metoprolol and add ASA 81 mg daily. 2. HTN, controlled on current meds. 3. HLD, on statin 4. Hypothyroidism, on replacement. 1. We will discharge back to [place] today 2. PCP will see later in week 3. Follow-up with cardiology and possible stress test in future DS: Diagnosis - Discharge Diagnosis (1) Chest pain Status: Acute (2) Obesity (BMI 30.0-34.9) Status: Acute (3) Hypothyroidism Status: Acute (4) HTN (hypertension) Status: Acute Discharge Plan - Patient Discharge Instructions ACTIVITY: Continue current activity DIET: continue same diet - Follow up Plan Follow up with: Bin Benjamin MD [Primary Care Provider] - 1 week Jaime Carrasco MD [Staff Physician] - 2 weeks Disposition: Home, Self-[facility] Medications: Home Medications Medication Instructions Recorded Confirmed Type Atorvastatin Calcium [Atorvastatin 10 mg PO DAILY 06/04/19 06/04/19 History 10mg Tab] Fluoxetine HCl 40 mg PO DAILY 06/04/19 06/04/19 History Levothyroxine Sodium 25 mcg PO DAILY 06/04/19 06/04/19 History [Levothyroxine 25mcg (0.025mg) Tab] Loratadine [Claritin 10mg Tablet] 10 mg PO HS 06/04/19 06/04/19 History Melatonin 5 mg PO HS 06/04/19 06/04/19 History Metoprolol Tartrate 50 mg PO BID 06/04/19 06/04/19 History OLANZapine [Olanzapine] 10 mg PO DAILY 06/04/19 06/04/19 History Oxybutynin Chloride 10 mg PO DAILY 06/04/19 06/04/19 History Prazosin HCl [Minipres 1mg capsule] 1 mg PO HS 06/04/19 06/04/19 History Prescriptions/Medication Reconciliation: Continued OLANZapine [Olanzapine] 10 mg PO DAILY Prazosin HCl [Minipres 1mg capsule] 1 mg PO HS Oxybutynin Chloride 10 mg PO DAILY Fluoxetine HCl 40 mg PO DAILY Atorvastatin Calcium [Atorvastatin 10mg Tab] 10 mg PO DAILY Levothyroxine Sodium [Levothyroxine 25mcg (0.025mg) Tab] 25 mcg PO DAILY Loratadine [Claritin 10mg Tablet] 10 mg PO HS Metoprolol Tartrate 50 mg PO BID Melatonin 5 mg PO HS - Problem Reconciliation Problems Reviewed?: Yes
--- NOTE | 2019-06-06 16:20 | Cardiology Report ---
APPROVED REPORT EXAM: Comprehensive 2D, Doppler, and color-flow Echocardiogram General Office Clerk: Mary Mora RT(R) Ht: 4 ft 11 in Wt: 177lbs BSA: 1.75 BP: 148/75 mmHg Indications: CP, pre diabetic, obesity, family history with mom dying in her 50's from heart disease. 2D Dimensions LVOT 1.61 cm (M/F) 1.5-2.5 M-Mode Dimensions RVDd 1.51 cm (0.9-2.6)LVDd 5.01 cm (3.5-5.7) LVDs 3.50 cm (3.5-5.7)IVSd 0.81 cm (0.6-1.1) PWd 0.74 cm (0.6-1.1)EF (Teich) 57.20% FS 30.10% EDV (Teich) 118.80 mL ESV (Teich) 50.90 mL LV Diastology E/A Ratio 1.36 Mitral Valve MV A Velocity 104.00 (40-130 cm/s) Left Ventricle Left atrium is mildly enlarged, left ventricle is normal size, there is no concentric left ventricular hypertrophy, visually estimated ejection fraction 55% with no regional wall motion abnormality. Diastolic parameters are within normal range. Right Ventricle Right atrium and right ventricular normal size and contractility. Aortic Valve Aortic valve is minimally thickened and fibrosed. Mitral Valve Mitral valve is grossly normal, there is mild mitral regurgitation. Tricuspid Valve Tricuspid valve is grossly normal, there is mild tricuspid regurgitation. Tricuspid regurgitation jet velocity is inadequate for calculation of the right ventricular systolic pressure. Pulmonic Valve Pulmonic valve is poorly visualized. Great Vessels Aortic root is normal size. Pericardium No significant pericardial effusion noted. Conclusion 1. Mildly enlarged left atrium, normal left ventricular size, visually estimated ejection fraction 55% with no regional wall motion abnormality, diastolic parameters are within normal range. 2. Mild mitral and tricuspid regurgitation. 3. No significant pericardial effusion noted. Electronically signed by : Barak Ramirez, 06/06/2019 16:20:09
--- NOTE | 2019-06-09 07:54 | Electrocardiograph Report ---
APPROVED REPORT Exam: Resting ECG HR:58 bpm ECG Measurements Heart Rate 58 AXES WI 136 P 45 QRSd 64 QRS 50 QT 432 T52 QTc 424 <Conclusion> Sinus bradycardia Junctional ST depression, probably normal Borderline ECG Electronically signed by : Mario Sellers, 06/09/2019 07:53:41
== END 2019-06-05 11:40 | disposition home or self-care (01) ==
LOC: ER 18:17 → 2ND 18:17
PROVIDERS: ADMIT Emergency Medicine; ATTEND Emergency Medicine
CPT/HCPCS: 36415; 71020; 71046; 80048; 80061; 81001; 84484; 85007; 85025; 90686; 90732; 93005; 93306; 99284; G0378

== ENCOUNTER 2020-03-22 17:31 | Observation (INO) | payer OTHER, SELFPAY ==
[2020-03-22] VITALS (12 sets, daily range): BP systolic 117–158; BP diastolic 65–96; PULSE 61–75; RESP 16–18; TEMP 37.3–37.8; O2SAT 92–97; BMI 35.5; BMI 34.0
--- NOTE | 2020-03-22 | ECG_ITS ---
APPROVED REPORT Exam: Resting ECG HR:78 bpm ECG Measurements Heart Rate 78 AXES ME 152 P 64 QRSd 68 QRS 20 QT 374 T 38 QTc 426 Conclusion Normal sinus rhythm Poor r wave progression Abnormal ECG Electronically signed by : Mario Sellers, 03/23/2020 07:22:56
--- NOTE | 2020-03-22 17:33 | HMH.EDGENADL ---
ED Disposition Clinical Impression: Chest pain Qualifiers: Chest pain type: unspecified Qualified Code(s): R07.9 - Chest pain, unspecified Disposition: Admitted as Observation Condition on Discharge: Good Referrals: Bin Benjamin MD [Primary Care Provider] - - Critical Care Critical Care Time: No Attestation: On , the high probability of a clinically significant, sudden or life threatening deterioration of the following system(s) required my full and direct attention, intervention and personal management. The time I documented below is in addition to time spent performing reported procedures but includes the following listed in this critical care notation. Medical Decision Making - Medical Records Medical records reviewed: Yes: I reviewed the patient's medical records. MR Comment: Admitted to this hospital 06/04/2019 through 06/05/2019 for chest pain. Work-up including echocardiogram negative. In the emergency department here 06/26/2019 for chest pain. Emergency department work-up including troponin x2 and D-dimer negative. - Abhilash Inquiry Pt receiving controlled substance: No Vital Signs: 03/22/20 17:32 03/22/20 17:57 03/22/20 18:02 Temperature 99.2 F Temperature Source Oral Pulse Rate [Right Radial] 73 75 69 Respiratory Rate 18 Blood Pressure [Right Arm] 117/84 121/65 124/82 Blood Pressure Mean [Right Arm] 95 83 96 Blood Pressure Source [Right Arm] Automatic Cuff Automatic Cuff Automatic Cuff Blood Pressure Position [Right Arm] Sitting Sitting Sitting 02 Sat by Pulse Oximetry 95 97 96 Oxygen Delivery Method Room Air Room Air Room Air 03/22/20 18:29 03/22/20 19:00 Temperature Temperature Source Pulse Rate [Right Radial] 66 67 Respiratory Rate 17 Blood Pressure [Right Arm] 135/82 122/79 Blood Pressure Mean [Right Arm] 99 93 Blood Pressure Source [Right Arm] Automatic Cuff Automatic Cuff Blood Pressure Position [Right Arm] Sitting Supine 02 Sat by Pulse Oximetry 96 97 Oxygen Delivery Method Room Air Room Air - Lab Data Lab Results 03/22/20 17:42: WBC 8.5, RBC 4.80, Hgb 13.6, Hct 40.8, MCV 85.0, MCH 28.2, MCHC 33.2, RDW 14.0, Plt Count 251, MPV 8.4, Neut % (Auto) 50.9, Lymph % (Auto) 40.6, [place] % (Auto) 5.2, Eos % (Auto) 2.5, Baso % (Auto) 0.9, Neut # (Auto) 4.3, Lymph # (Auto) 3.5, [place] # (Auto) 0.5, Eos # (Auto) 0.2, Baso # (Auto) 0.1 03/22/20 17:42: Sodium 139, Potassium 4.0, Chloride 102, Carbon Dioxide 25, Anion Gap 16.0 H, BUN 11, Creatinine 0.80, Estimated Creat Clear 111, Estimated GFR 76, Est GFR ( Amer) 92, Glucose 203 H, Calcium 9.2, Troponin I < 0.01 Result diagrams: 03/22/20 17:42 03/22/20 17:42 Orders (Tests/Meds): ORDERS Category Date Time Status CXR --portable [XR chest portable] Stat Exams 03/22/20 17:43 Taken Troponin I Q3H Lab 03/22/20 21:00 Ordered Troponin I Q3H Lab 03/23/20 00:00 Ordered - Radiology Data #1 Image(s): Chest Image Reviewed: Yes I reviewed the patient's radiology image Atelectasis versus scar lingula, no acute disease - ECG Data Tracing #1 EKG interpreted by Mateo Pink MD: Rhythm: sinus Rate: 78 [place]: normal Ectopy: none Conduction: normal ST Segment Changes: none T Wave Changes: none Q Waves: none Poor R wave progression Baseline artifact present, but I consider the EKG adequate for accurate interpretation. Prior electrocardiagrams reviewed. No change from prior tracings. - Physician Consults Physician Consulted: Sourav Time: 20:02 Reason -: Admission, Pt condition Comment/Response: Prefers to admit the patient to the hospital. We discussed the patient's clinical information, including history, exam, laboratory and radiology results and ED course. Per hospital procedure, I will write temporary bridge inpatient orders on the patient. Specific orders requested by the admitting physician: ECHO, cardio consult, NPO after MN, serial trop Medical Decision Narrative: Prior ECHO: Conclu
--- NOTE | 2020-03-22 17:43 | XR_ITS ---
PROCEDURE: XR CHEST PORTABLE Referring Doctor: HarjinderMateo burdick Patient Age:50Y CLINICAL HISTORY: CP Mid chest pain patient reports story in COMPARISON: 06/29/2019 and June 04 2019 PA and lateral CXR FINDINGS: Today's AP portable upright chest is compared to the previous above PA and lateral chest studies. There is less optimal inspiration today which slightly accentuate suppressed markings at the bases but CXR today appears overall stable for the most part. The right lung appears stable and clear the slight accentuation markings right infrahilar region is similar to previous studies. Left chest but linear area of scarring and atelectasis at the left mid lung is seen previously and unchanged. Thus difficult to exclude a very very subtle early infiltrate here at the left mid lung just lateral to the left onofre and superior to this linear area of atelectasis/scar but most likely this area is stable as well.. The opacity at the periphery of the left lung is very slight greater laterally but I believe this is due to overlapping soft tissues of the chest most likely. Right and left hemidiaphragm a well delineated with but no basilar infiltrate nor pleural effusion evident The heart upper normal in size. Appears similar to June study.. Normal pulmonary vascularity . Mediastinal structures unchanged and appears satisfactory The but the left onofre is perhaps slightly denser but I believe this is merely due to overlapping structures and pulmonary artery shadow. Ribs and chest wall unremarkable on this portable study IMPRESSION: Nothing definitely acute Thin linear area scarring/atelectasis at the left mid lung noted Markings are slightly accentuated left mid lung just above this linear area of scarring-but favor this is merely due to portable technique with no definitive or convincing infiltrate at this point Dictated by: Dilshad Foley MD 03/22/2020 20:50 Dilshad Foley MD in OV 03/22/2020 20:50
[2020-03-22 17:56] LABS: Chloride 102 mmol/L (98-107); Sodium 139 mmol/L (136-145)
[2020-03-22 17:58] LABS: Basophils # 0.1 K/mm3 (0-0.2); Basophils % 0.9 % (0.1-2.0); Eosinophils # 0.2 K/mm3 (0.0-0.4); Eosinophils % 2.5 % (0.1-12.0); Hematocrit 40.8 % (37.0-47.0); Hemoglobin 13.6 g/dL (12.2-16.2); Lymphocytes # 3.5 K/mm3 (0.7-4.5); Lymphocytes % 40.6 % (10-50); Mean Corpuscular HGB Conc 33.2 g/dL (31.8-35.4); Mean Corpuscular Hemoglobin 28.2 pg (27.0-31.2); Mean Platelet Volume 8.4 fl (7.4-10.4); Monocytes # 0.5 K/mm3 (0.1-1.0); Monocytes % 5.2 % (1.7-9.3); Neutrophils # 4.3 K/mm3 (1.8-7.8); Neutrophils % 50.9 % (37.0-80.0); Platelet Count 251 K/mm3 (142-424); White Blood Count 8.5 K/mm3 (4.8-10.8)
[2020-03-22 17:59] LABS: Blood Urea Nitrogen 11 mg/dl (7-17); Creatinine Clearance Estimated 111 mL/min (50-200); Estimated Glomerular Filt Rate 76 ml/min (>60); GFR (African American) 92 ML/MIN (>60)
[2020-03-22 18:00] LABS: Calcium 9.2 mg/dl (8.4-10.2); Carbon Dioxide 25 mmol/L (22.0-30.0); Glucose 203 mg/dl (74-100)
[2020-03-22 18:12] LABS: Troponin I < 0.01 ng/ml (0.00-0.034)
[2020-03-22 20:35] LABS: Coronavirus 19 IgG Antibody Positive (Negative); Coronavirus 19 IgM Antibody Negative (Negative)
--- NOTE | 2020-03-22 20:45 | HMH.HP ---
*Admission Date: 03/22/20 *Chief complaint: chest pain *History of present illness: this pt is from [facility] and c/o of chest pain with rad to jaw and lt upper ext over the last 2 days - she was seen in the ed -ought in by ambulance from [facility]. She complains of chest pain which she says started last night. She says it has been continuous ever since onset. She says it worsened today. She describes a heaviness in her chest like somebody sitting on her chest going into her jaw and her left arm. She feels short of breath. She has had some diarrhea, but no vomiting. She also says that she has had a cough and a low-grade fever of 100 degrees for 1 week. She says that she was diagnosed with COVID-19 earlier this year. She says she has hypertension and congestive heart failure. Family history of congestive heart failure and coronary artery disease. pt was admitted for [facility] History I have reviewed the patient's past medical history: Yes Medical History: Reports:: Anxiety, Congestive Heart Failure, Chronic Obstructive Pulmonary Disease (COPD), Depression Denies:: Cancer, Diabetes Mellitus Type 1 (Borderline diabetic checking BS ACHS bs 115-120 at home.), Diabetes Mellitus Type 2, MRSA *Have you ever received a pneumonia vaccine?: No *Have you received a flu vaccine this season?: No Other Medical History: Reports: Anemia, Arthritis, Hypothyroidism, Sinus Problems Laterality Cases: Bilateral: Other Other Surgeries: Yes: Hysterectomy-Total Amputation: No Fractures: Yes (ankles and wrist 2019) - *Social History Smoking Status: Never smoker Alcohol Intake: never *Occupational Status:: other Housing: house Household Members: other *Travel in the last 8 weeks: None - Psychiatric History Pschychiatric History:: Reports:: Anxiety, Depression Family Hx:: Asthma, Diabetes, Hypertension, Other, Coronary Artery Disease Review of Systems - Review of Systems Review of systems:: pertinent systems reviewed and negative unless documented below - Constitutional Denies fever(s) - Eyes Denies change in vision - ENT Denies sore throat - *Cardiovascular Reports chest pain, Reports chest pain at rest, Reports chest pain with activity, Reports radiating jaw, neck or arm pain - *Respiratory Denies cough - *Gastrointestinal Reports abdominal pain - *Genitourinary Denies blood in urine - *Musculoskeletal Denies joint pain - Integumentary/Breasts Denies rash - *Neurologic Denies seizure-like activity - Psychiatric Reports anxiety Meds Home Medications Medication Instructions Recorded Confirmed Type Fluoxetine HCl 40 mg PO DAILY 06/04/19 03/22/20 History Loratadine [Claritin 10mg 10 mg PO HS 06/04/19 03/22/20 History Tablet] Metoprolol Tartrate 25 mg PO BID 06/04/19 03/22/20 History OLANZapine [Olanzapine] 10 mg PO DAILY 06/04/19 03/22/20 History atorvastatin 10 mg tablet 10 mg PO DAILY #90 tab 12/13/19 03/22/20 Rx Aspirin [Aspirin 81mg chewable 81 mg PO DAILY 03/22/20 03/22/20 History tab] Famotidine [Pepcid 20mg Tablet] 20 mg PO BID 03/22/20 03/22/20 History LORazepam [Lorazepam] 0.5 mg PO TID 03/22/20 03/22/20 History Lactulose [Lactulose 10gm/15ml 10 gm PO DAILY 03/22/20 03/22/20 History Oral Soln] Losartan Potassium [Cozaar 50mg 50 mg PO QDAY 03/22/20 03/22/20 History Tablets] haloperidoL [Haldol 5mg tablet] 5 mg PO TID 03/22/20 03/22/20 History Allergies Allergy/AdvReac Type Severity Reaction Status Date / Time Cephalosporins Allergy Rash Verified 06/19/19 09:51 citalopram [From Celexa] Allergy Rash Verified 06/19/19 09:51 levofloxacin [From Levaquin] Allergy Unknown Verified 06/19/19 09:51 allergy reaction metoclopramide [From Reglan] Allergy Rash Verified 06/19/19 09:51 Penicillins Allergy Rash Verified 06/19/19 09:51 promethazine Allergy Rash Verified 06/19/19 09:51 quetiapine [From Seroquel] Allergy Verified 06/19/19 09:51 Exam Vital si
[2020-03-22 22:13] LABS: Troponin I < 0.01 ng/ml (0.00-0.034)
--- NOTE | 2020-03-22 22:20 | PC.NURSE ---
patient up to floor via wheelchair
[2020-03-22 22:58] LABS: Hemoglobin A1C 6.6 % (4.0-6.0)
[2020-03-23] VITALS (18 sets, daily range): BP systolic 108–140; BP diastolic 43–85; PULSE 50–78; RESP 14–18; TEMP 36.4–37.3; O2SAT 93–97; BMI 34.1
--- NOTE | 2020-03-23 | IR_ITS ---
APPROVED REPORT Patient Location: Inpatient Business Services Clerk: CHESTER Abarca RT (R) PROCEDURES Left heart catheterization Left ventriculogram Selective coronary angiogram INDICATION Unstable angina Informed consent was obtained prior to the procedure. COMPLICATIONS none Estimated Blood Loss: less than 10 mls TECHNIQUE One percent lidocaine used to anesthetize the right anterior aspect of the wrist. The right radial artery was accessed via the Seldinger technique. A 6 [place] sheath was placed in the right radial artery. 2.5 mg of verapamil, 800 mcg of nitroglycerin, 1mg Lidocaine and 5000 U Heparin were given through the arterial sheath. The trap catheter was also used to perform left heart catheterization, left ventriculogram and selective coronary angiogram. At the end of the procedure the sheath was removed good hemostasis was achieved using Traclet band, patient was transferred to the postop holding area in stable condition. ANGIOGRAPHIC RESULTS The left main artery Normal The left anterior descending artery Normal The circumflex artery Dominant normal The right coronary artery Vestigial normal The ADRIAN ventriculogram reveals Normal 65% The left ventricular end-diastolic pressure 10 mmHg IMPRESSION Normal coronary arteries Normal ejection fraction Normal left ventricular end-diastolic pressure PLAN 1. Evaluation of noncardiac chest pain Electronically signed by : Jaime Carrasco, 03/23/2020 10:15:53
[2020-03-23 02:00] LABS: Troponin I < 0.01 ng/ml (0.00-0.034)
--- NOTE | 2020-03-23 04:12 | PC.NURSE ---
Pt has slept in intervals during this shift, Pt A&Ox4 BLT lung sounds clear throughout, Bowel sounds present in all 4 quadrants, Pt is on RA and on telemetry, Pt reported chest tightness during this shift, Pt medicated per JUN, Pt up without assistance. IV S/L in RT AC. Pt denies SOA, Headache, dizziness, or N/V. Pt has an echo scheduled in the AM
--- NOTE | 2020-03-23 07:30 | HMH.PHAVTE ---
[facility] Pharmacy VTE Monitoring - Patient Demographics Admission date: 03/22/20 Report Date: 03/23/20 Time: 07:30 Allergies/Adverse Reactions: Patient Allergies Cephalosporins Allergy (Verified 06/19/19 09:51) Rash citalopram [From Celexa] Allergy (Verified 06/19/19 09:51) Rash levofloxacin [From Levaquin] Allergy (Verified 06/19/19 09:51) Unknown allergy reaction metoclopramide [From Reglan] Allergy (Verified 06/19/19 09:51) Rash Penicillins Allergy (Verified 06/19/19 09:51) Rash promethazine Allergy (Verified 06/19/19 09:51) Rash quetiapine [From Seroquel] Allergy (Verified 06/19/19 09:51) Height: 1.52 m Weight: 78.925 kg Patient Problems: Current Active Problems HTN (hypertension) (Acute) Obesity (BMI 30-39.9) (Acute) COVID-19 virus IgG antibody detected (Acute) Bipolar disorder (Chronic) HLD (hyperlipidemia) (Chronic) Chest pain (Acute) Hypothyroidism (Acute) - VTE Risk Labs: VTE Related Lab Results Hgb 13.6 g/dL (12.2-16.2) 03/22/20 17:42 Hct 40.8 % (37.0-47.0) 03/22/20 17:42 Plt Count 251 K/mm3 (142-424) 03/22/20 17:42 BUN 11 mg/dl (7-17) 03/22/20 17:42 Creatinine 0.80 mg/dl (0.52-1.04) 03/22/20 17:42 Estimated Creat Clear 111 mL/min (50-200) 03/22/20 17:42 Was VTE Risk Assessment Performed: Yes VTE Score: 4 VTE Risk Level: Low Risk - Prophylaxis VTE Prophylaxis Ordered?: Yes Types of VTE Prophylaxis: TEDS Knee High Location of Applied Device: Bilateral Lower Extremeties
--- NOTE | 2020-03-23 08:47 | HMH.CNCARD ---
History of Present Illness Consult date: 03/23/20 Requesting physician: Bin Benjamin Consult reason: chest pain Chief complaint: chest pain History of present illness: This is a 50-year-old white female who presented to the emergency department with complaints of chest pain. She states that her chest pain started around 2 days ago and has been pretty persistent. She states that it occurs with exertion and improves with rest. She describes this as a tight sharp sensation in the center of her chest that radiates to her left arm and the left side of her jaw. She states it is associated with shortness of breath, nausea and diaphoresis. The patient states that this is an 8 out of 10 in intensity. She states nothing is really helping to improve her chest pain. Despite being admitted to the hospital she states that she continues to have the chest pain. The patient does reside at [facility]. She has been to the emergency department on multiple occasions this year for chest pain. She did follow-up in the cardiology clinic and was set up for cardiac testing for which she never followed up on. The patient states that she has had a cough with a low-grade fever for approximately 1 week. She was tested for Covid and her IgG antibody is positive but her IgM antibody is negative. The patient does report a family history of congestive heart failure and coronary artery disease as well as HI in her mother. She has a personal history of hypertension, hyperlipidemia and congestive heart failure. She denies any tobacco use. She denies any personal history of coronary artery disease. She states that her symptoms continue to persist this morning. She states that she is very uncomfortable. [facility] History I have reviewed the patient's past medical history: Yes Medical History: Reports:: Anxiety, Congestive Heart Failure, Chronic Obstructive Pulmonary Disease (COPD), Depression, Hyperlipidemia, Hypertension Denies:: Cancer, Diabetes Mellitus Type 1, Diabetes Mellitus Type 2, MRSA *Have you ever received a pneumonia vaccine?: Yes *Have you received a flu vaccine this season?: Yes Other Medical History: Reports: Anemia, Arthritis, Hypothyroidism, Sinus Problems Laterality Cases: Bilateral: Other Other Surgeries: Yes: , Hysterectomy-Total Amputation: No Fractures: Yes (ankles and wrist 2019) - *Social History Last grade of school completed: 11th or 12th Smoking Status: Never smoker Alcohol Intake: never *Occupational Status:: unemployed, disabled Housing: house Household Members: other *Travel in the last 8 weeks: None - Psychiatric History Pschychiatric History:: Reports:: Anxiety, Depression Family Hx:: Asthma, Diabetes, Hypertension Meds Home Medications Medication Instructions Recorded Confirmed Type Fluoxetine HCl 40 mg PO DAILY 06/04/19 03/22/20 History Loratadine [Claritin 10mg 10 mg PO HS 06/04/19 03/22/20 History Tablet] Metoprolol Tartrate 25 mg PO BID 06/04/19 03/22/20 History OLANZapine [Olanzapine] 10 mg PO DAILY 06/04/19 03/22/20 History atorvastatin 10 mg tablet 10 mg PO DAILY #90 tab 12/13/19 03/22/20 Rx Aspirin [Aspirin 81mg chewable 81 mg PO DAILY 03/22/20 03/22/20 History tab] Famotidine [Pepcid 20mg Tablet] 20 mg PO BID 03/22/20 03/22/20 History LORazepam [Lorazepam] 0.5 mg PO TID 03/22/20 03/22/20 History Lactulose [Lactulose 10gm/15ml 10 gm PO DAILY 03/22/20 03/22/20 History Oral Soln] Losartan Potassium [Cozaar 50mg 50 mg PO QDAY 03/22/20 03/22/20 History Tablets] haloperidoL [Haldol 5mg tablet] 5 mg PO TID 03/22/20 03/22/20 History Allergies Allergy/AdvReac Type Severity Reaction Status Date / Time Cephalosporins Allergy Rash Verified 06/19/19 09:51 citalopram [From Celexa] Allergy Rash Verified 06/19/19 09:51 levofloxacin [From Levaquin] Allergy Unknown Verified 06/19/19 09:51 allergy reaction metoclopramide [From Reglan] Allergy Rash Verified 06/19/19 09:51 Pe
--- NOTE | 2020-03-23 09:29 | HMH.PHAINT ---
MEDICATION RECONCILIATION COMPLETED ON PATIENT USING MAR FROM ALF. -SID FOOTE, DELLAD
--- NOTE | 2020-03-23 12:20 | HMH.DCSUM ---
General - General Admission date:: 03/22/20 Discharge date: 03/23/20 HPI HPI: this pt is from [facility] and c/o of chest pain with rad to jaw and lt upper ext over the last 2 days - she was seen in the ed -ought in by ambulance from [facility]. She complains of chest pain which she says started last night. She says it has been continuous ever since onset. She says it worsened today. She describes a heaviness in her chest like somebody sitting on her chest going into her jaw and her left arm. She feels short of breath. She has had some diarrhea, but no vomiting. She also says that she has had a cough and a low-grade fever of 100 degrees for 1 week. She says that she was diagnosed with COVID-19 earlier this year. She says she has hypertension and congestive heart failure. Family history of congestive heart failure and coronary artery disease. pt was admitted for eval- Hospital Course Hospital Course: pt remained stable in hospital but continued to have chest pain- her enz were ok and she was seen by card-his is a 50-year-old white female who presented to the emergency department with complaints of chest pain. She states that her chest pain started around 2 days ago and has been pretty persistent. She states that it occurs with exertion and improves with rest. She describes this as a tight sharp sensation in the center of her chest that radiates to her left arm and the left side of her jaw. She states it is associated with shortness of breath, nausea and diaphoresis. The patient states that this is an 8 out of 10 in intensity. She states nothing is really helping to improve her chest pain. Despite being admitted to the hospital she states that she continues to have the chest pain. The patient does reside at [facility]. She has been to the emergency department on multiple occasions this year for chest pain. She did follow-up in the cardiology clinic and was set up for cardiac testing for which she never followed up on. The patient states that she has had a cough with a low-grade fever for approximately 1 week. She was tested for Covid and her IgG antibody is positive but her IgM antibody is negative. The patient does report a family history of congestive heart failure and coronary artery disease as well as IA in her mother. She has a personal history of hypertension, hyperlipidemia and congestive heart failure. She denies any tobacco use. She denies any personal history of coronary artery disease. She states that her symptoms continue to persist this morning. She states that she is very uncomfortable. The patient is having symptoms consistent with unstable angina. Despite being in the hospital her symptoms have not improved. She has been in the hospital on multiple occasions this year with similar symptoms. Given the patient's unstable angina we will plan to proceed with left cardiac catheterization today to evaluate for coronary artery disease. 2. The patient has been educated on the risks and benefits of proceeding with left cardiac catheterization. The patient is verbalized understanding and is agreeable to proceeding with the procedure. 3. The patient be n.p.o. in preparation for left cardiac catheterization. 4. The patient with IV fluids and premedications prior to the procedure. 5. We will get an echocardiogram to evaluate her LV function. 6. Her blood pressure is well controlled. The patient is currently on a beta-maile and an ARB. 7. LDL goal is less than 100. We will get a lipid panel in the morning. 8. Further recommendations were made pending the patient's response to treatment and results of her left cardiac catheterization later today. C shows: The left main artery Normal The left anterior descending artery Normal The circumflex artery Dominant normal The right coronary artery Vestigial normal The ADRIAN ventriculogram reveals Normal 65% The left ventricular end-diastolic pressure 10 mmHg IMP
--- NOTE | 2020-03-23 12:49 | SW/DCPLANNER ---
This patient currently resides at [facility]. I have informed Charley that this patient did have a heart cath this morning and required no further intervention. I have also informed Charley that this patient is ready for discharge. Charley has asked that I set up [facility] for transportation back today. I have notified patients nurse (Jitendra) to please contact me when patient is ready for discharge I will arrange transportation. This patient will discharge back to [facility] today.
[2020-03-23 13:34] LABS: Adenovirus,PCR Not Detected (NotDetected); Bordetella Pertussis Not Detected (NotDetected); Chlamydophila Pneumoniae, PCR Not Detected (NotDetected); Coronavirus 19, PCR Not Detected (NotDetected); Coronavirus 229E Not Detected (NotDetected); Coronavirus NL63 Not Detected (NotDetected); Coronavirus OC43 Not Detected (NotDetected); Coronovirus HKU1,PCR Not Detected (NotDetected); Human Metapneumovirus Not Detected (NotDetected); Influenza A, PCR Not Detected (NotDetected); Influenza AH1, 2009 Not Detected (NotDetected); Influenza AH1, PCR Not Detected (NotDetected); Influenza AH3,PCR Not Detected (NotDetected); Influenza B, PCR Not Detected (NotDetected); Mycoplasma Pneumoniae, PCR Not Detected (NotDetected); Parainfluenza 1, PCR Not Detected (NotDetected); Parainfluenza 2, PCR Not Detected (NotDetected); Parainfluenza 3, PCR Not Detected (NotDetected); Parainfluenza 4, PCR Not Detected (NotDetected); Respiratory Syncytial Virus Not Detected (NotDetected); Rhinovirus/Enterovirus Not Detected (NotDetected)
[2020-03-23 14:58] LABS: Chol/HDL Ratio 3.5 (1-3.5); Cholesterol 145 mg/dl (140-200); HDL Cholesterol 41 mg/dl (40-60); Triglycerides 132 mg/dl (30-150); VLDL Cholesterol 26 mg/dL (0-40)
[2020-03-23 15:09] LABS: Direct LDL Cholesterol 74.83 mg/dL (100-129)
== END 2020-03-23 16:10 | disposition home or self-care (01) ==
LOC: ER 20:03 → 2ND 20:16
PROVIDERS: Internal Medicine; Admitting Provider Emergency Medicine; Emergency Provider Emergency Medicine; PCP Emergency Medicine; Visit Provider Emergency Medicine
DX: I25.110 Atherosclerotic heart disease of native coronary artery with unstable angina pectoris (principal); I11.0 Hypertensive heart disease with heart failure; I50.9 Heart failure, unspecified; J44.9 Chronic obstructive pulmonary disease, unspecified; E78.5 Hyperlipidemia, unspecified; E11.9 Type 2 diabetes mellitus without complications; E03.9 Hypothyroidism, unspecified; F31.9 Bipolar disorder, unspecified; Z88.0 Allergy status to penicillin; Z88.1 Allergy status to other antibiotic agents; Z88.8 Allergy status to other drugs, medicaments and biological substances
CPT/HCPCS: 36415; 71045; 80048; 80061; 83036; 84484; 85025; 86328; 87581; 87633; 87798; 93005; 93306; 93458; 99152; 99284; C1725; C1760; C1769; G0378; J1644; Q9967

== ENCOUNTER 2020-08-01 13:00 | Emergency (ER) | payer OTHER, SELFPAY ==
--- NOTE | 2020-08-01 13:01 | ECG_ITS ---
APPROVED REPORT Exam: Resting ECG HR:76 bpm ECG Measurements Heart Rate 76 AXES VA 158 P 58 QRSd 66 QRS 14 QT 392 T 40 QTc 441 Conclusion Poor data quality, interpretation may be adversely affected Normal sinus rhythm Nonspecific T wave abnormality Abnormal ECG Electronically signed by : Mario Sellers, 08/01/2020 20:06:44
[2020-08-01 13:02] VITALS: BP 130/87; PULSE 77; RESP 18; TEMP 36.8; O2SAT 97; BMI 33.2
--- NOTE | 2020-08-01 13:12 | XR_ITS ---
PROCEDURE: XR CHEST PORTABLE CLINICAL HISTORY: cp Chest pain COMPARISON: CR XR CHEST 2V from 06/04/2019 CR XR CHEST 2V from 06/26/2019 CR XR CHEST PORTABLE from 03/22/2020 FINDINGS: The cardiomediastinal silhouette and pulmonary vascularity are within normal limits. The lungs are clear without infiltrates, suspicious nodules, or pleural effusions. No acute bony abnormalities. IMPRESSION: No acute findings. Dictated by: Narendra Doran MD 08/01/2020 14:21 Narendra Doran MD in OV 08/01/2020 14:21
--- NOTE | 2020-08-01 13:19 | HMH.EDCP ---
ED Disposition Clinical Impression: Costalchondritis Disposition: Home, Self-Care Condition on Discharge: Good Referrals: Bin Benjamin MD [Primary Care Provider] - - Critical Care Critical Care Time: No Attestation: On 08/01/20, the high probability of a clinically significant, sudden or life threatening deterioration of the following system(s) required my full and direct attention, intervention and personal management. The time I documented below is in addition to time spent performing reported procedures but includes the following listed in this critical care notation. Medical Decision Making - Medical Records Medical records reviewed: Yes: I reviewed the patient's medical records. - Abhilash Inquiry Pt receiving controlled substance: No Vital Signs: 08/01/20 13:02 Temperature 98.3 F Temperature Source Oral Pulse Rate [Right Radial] 77 Respiratory Rate 18 Blood Pressure [Right Arm] 130/87 Blood Pressure Mean [Right Arm] 101 Blood Pressure Source [Right Arm] Automatic Cuff Blood Pressure Position [Right Arm] Sitting 02 Sat by Pulse Oximetry 97 Oxygen Delivery Method Room Air - Lab Data Lab results reviewed: Yes: I reviewed the patient's lab results. Lab Results 08/01/20 13:30: WBC 6.8, RBC 4.07 L, Hgb 11.1 L, Hct 33.3 L, MCV 81.8, MCH 27.2, MCHC 33.2, RDW 13.8, Plt Count 219, MPV 8.7, Neut % (Auto) 56.3, Lymph % (Auto) 33.8, Wood % (Auto) 5.7, Eos % (Auto) 3.6, Baso % (Auto) 0.7, Neut # (Auto) 3.8, Lymph # (Auto) 2.3, Wood # (Auto) 0.4, Eos # (Auto) 0.3, Baso # (Auto) 0.1 08/01/20 13:30: Sodium 140, Potassium 5.0, Chloride 108 H, Carbon Dioxide 23, Anion Gap 14.0, BUN 6 L, Creatinine 0.50 L, Estimated Creat Clear 166, Estimated GFR 131, Est GFR ( Amer) 159, Glucose 168 H, Calcium 8.9, Total Bilirubin 0.9, AST 161 H, ALT 74, Alkaline Phosphatase 124, CK-MB (CK-2) 1.5, Troponin I < 0.01, NT-Pro-B Natriuret Pep 62.5, Total Protein 7.8, Albumin 4.3, Globulin 3.5 H, Albumin/Globulin Ratio 1.2 Result diagrams: 08/01/20 13:30 08/01/20 13:30 Orders (Tests/Meds): ED MEDICATIONS Discontinued Medications Generic Name Dose Route Start Last Admin Trade Name Anel PRN Reason Stop Dose Admin Ondansetron HCl 4 mg 08/01/20 14:06 08/01/20 14:12 Ondansetron 4mg Odt SL 08/01/20 14:07 4 mg ONCE ONE Administration ORDERS Category Date Time Status XR chest portable Stat Exams 08/01/20 13:12 Taken Troponin I Q3H Lab 08/01/20 16:15 Ordered Troponin I Q3H Lab 08/01/20 19:15 Ordered - Radiology Data #1 Image(s): Chest Image Reviewed: Yes I reviewed the patient's radiology results Preliminary Findings: Normal/NAD - ECG Data Tracing #1 ECG initial impression date: 08/01/20 ECG initial impression time: 13:05 ECG normal with no acute: arrhythmias, ischemia, conduction abnormalities, chamber hypertrophy Normal Sinus Rhythm: Yes Chest Pain HPI - General Chief Complaint: Chest Pain Stated Complaint: chest pain Time Seen by Provider: 08/01/20 13:10 Mode of Arrival: EMS Limitations: No Limitations Description of Symptoms (Recalled from ER Triage Doc. by RN): pt reports chest pain that began monday of this week. Pt states pain is sharp in nature and in midsternal area. Pt also reports SOA. - History of Present Illness HPI narrative: This is a 50-year-old female that presents via EMS with chest pain patient reports persistent chest pain x3 days. Pain is constant worse with deep inspiration. Pain is rated at 7 out of 10 in intensity currently. No nausea or vomiting, shortness of breath, or diaphoresis. - Related Data Home Medications Medication Instructions Recorded Confirmed Fluoxetine HCl 40 mg PO DAILY 06/04/19 03/22/20 Aspirin [Aspirin 81mg chewable 81 mg PO DAILY 03/22/20 03/22/20 tab] Famotidine [Pepcid 20mg Tablet] 20 mg PO BID 03/22/20 03/22/20 Losartan Potassium [Cozaar 50mg 50 mg PO DAILY 03/22/20 03/23/20 Tablets]
[2020-08-01 13:42] LABS: Basophils # 0.1 K/mm3 (0-0.2); Basophils % 0.7 % (0.1-2.0); Eosinophils # 0.3 K/mm3 (0.0-0.4); Eosinophils % 3.6 % (0.1-12.0); Hematocrit 33.3 % (37.0-47.0); Hemoglobin 11.1 g/dL (12.2-16.2); Lymphocytes # 2.3 K/mm3 (0.7-4.5); Lymphocytes % 33.8 % (10-50); Mean Corpuscular HGB Conc 33.2 g/dL (31.8-35.4); Mean Corpuscular Hemoglobin 27.2 pg (27.0-31.2); Mean Corpuscular Volume 81.8 fl (81-99); Mean Platelet Volume 8.7 fl (7.4-10.4); Monocytes # 0.4 K/mm3 (0.1-1.0); Monocytes % 5.7 % (1.7-9.3); Neutrophils # 3.8 K/mm3 (1.8-7.8); Neutrophils % 56.3 % (37.0-80.0); Platelet Count 219 K/mm3 (142-424); Red Blood Count 4.07 M/mm3 (4.20-5.40); Red Cell Distribution Width 13.8 % (11.5-17.5); White Blood Count 6.8 K/mm3 (4.8-10.8)
[2020-08-01 13:47] LABS: Chloride 108 mmol/L (98-107); Sodium 140 mmol/L (136-145)
[2020-08-01 13:50] LABS: Alanine Aminotransferase 74 U/L (12-78); Albumin Level 4.3 g/dl (3.5-5.0); Albumin/Globulin Ratio 1.2 (1.1-1.8); Alkaline Phosphatase 124 U/L (38-126); Aspartate Amino Transferase 161 U/L (14-36); Bilirubin,Total 0.9 mg/dl (0.2-1.3); Blood Urea Nitrogen 6 mg/dl (7-17); Calcium 8.9 mg/dl (8.4-10.2); Carbon Dioxide 23 mmol/L (22.0-30.0); Creatinine Clearance Estimated 166 mL/min (50-200); Estimated Glomerular Filt Rate 131 ml/min (>60); GFR (African American) 159 ML/MIN (>60); Globulin 3.5 g/dL (1.3-3.2); Glucose 168 mg/dl (74-100); Total Protein,Serum 7.8 g/dl (6.3-8.2)
[2020-08-01 14:00] LABS: Creatine Kinase MB 1.5 ng/ml (0.0-2.03); NT Pro Brain Natriuretic Pep. 62.5 pg/mL (0-125)
[2020-08-01 14:04] LABS: Troponin I < 0.01 ng/ml (0.00-0.034)
--- NOTE | 2020-08-01 14:26 | PC.NURSE ---
notified grecia pt is ready for d/c
[2020-08-01 14:47] VITALS: BP 130/81; PULSE 71; RESP 16; TEMP 36.6; O2SAT 98
== END 2020-08-01 14:48 | disposition home or self-care (01) ==
PROVIDERS: Emergency Provider Emergency Medicine; PCP Emergency Medicine
DX: M94.0 Chondrocostal junction syndrome [Tietze] (principal); E11.9 Type 2 diabetes mellitus without complications; F41.8 Other specified anxiety disorders; E78.5 Hyperlipidemia, unspecified; I10 Essential (primary) hypertension; E03.9 Hypothyroidism, unspecified; Z88.0 Allergy status to penicillin; Z79.899 Other long term (current) drug therapy
CPT/HCPCS: 71045; 80053; 82553; 83880; 84484; 85025; 93005; 99283

== ENCOUNTER 2020-08-23 12:53 | Emergency (ER) | payer OTHER, SELFPAY ==
--- NOTE | 2020-08-23 12:46 | ECG_ITS ---
APPROVED REPORT Exam: Resting ECG HR:82 bpm ECG Measurements Heart Rate 82 AXES MN 154 P 62 QRSd 72 QRS 9 QT 484 T 43 QTc 565 Conclusion Normal sinus rhythm Cannot rule out Anterior infarct, age undetermined Prolonged QT Abnormal ECG Electronically signed by : Mario Sellers, 08/25/2020 08:51:22
[2020-08-23 12:53] VITALS: BP 112/56; PULSE 81; RESP 18; TEMP 36.8; O2SAT 95; BMI 43.1
--- NOTE | 2020-08-23 13:04 | XR_ITS ---
PROCEDURE INFORMATION: Exam: XR Chest Exam date and time: 08/23/2020 1:04 PM Age: 50 years old Clinical indication: Patient HX: Cough and shortness of breath that started last night. TECHNIQUE: Imaging protocol: XR of the chest. Views: 1 view. COMPARISON: CR XR CHEST PORTABLE 08/01/2020 1:18 PM FINDINGS: Lungs: Opacity in the left base Pleural spaces: Unremarkable. No pleural effusion. No pneumothorax. Heart/Mediastinum: Unremarkable. No cardiomegaly. Bones/joints: Unremarkable. IMPRESSION: Opacity in the left base may represent atelectasis or pneumonia
--- NOTE | 2020-08-23 13:12 | HMH.EDCP ---
ED Disposition Clinical Impression: Left lower lobe pneumonia Qualifiers: Pneumonia type: due to unspecified organism Qualified Code(s): J18.9 - Pneumonia, unspecified organism Disposition: Home, Self-Care Condition on Discharge: Good Instructions: Pneumonia-Adult Prescriptions: Doxycycline Hyclate [Doxycycline 100mg Capsule] 100 mg PO Q12 #20 cap Transmission Status: Pending to [facility] Referrals: Bin Benjamin MD [Primary Care Provider] - - Critical Care Critical Care Time: No Attestation: On 08/23/20, the high probability of a clinically significant, sudden or life threatening deterioration of the following system(s) required my full and direct attention, intervention and personal management. The time I documented below is in addition to time spent performing reported procedures but includes the following listed in this critical care notation. Medical Decision Making - Medical Records Medical records reviewed: Yes: I reviewed the patient's medical records. - Abhilash Inquiry Pt receiving controlled substance: No Vital Signs: 08/23/20 12:53 08/23/20 13:45 08/23/20 14:31 Temperature 98.2 F Temperature Source Oral Pulse Rate 79 76 Pulse Rate [Right] 81 Respiratory Rate 18 22 Blood Pressure 116/64 138/81 Blood Pressure [Right Arm] 112/56 L Blood Pressure Mean [Right Arm] 74 Blood Pressure Source Automatic Cuff Blood Pressure Position Sitting 02 Sat by Pulse Oximetry 95 95 95 Oxygen Delivery Method Room Air Room Air - Lab Data Lab Results 08/23/20 12:55: WBC 6.8, RBC 4.46, Hgb 11.8 L, Hct 37.2, MCV 83.4, MCH 26.4 L, MCHC 31.7 L, RDW 14.1, Plt Count 204, MPV 8.9, Neut % (Auto) 56.3, Lymph % (Auto) 33.8, Orange % (Auto) 6.8, Eos % (Auto) 2.2, Baso % (Auto) 0.9, Neut # (Auto) 3.8, Lymph # (Auto) 2.3, Orange # (Auto) 0.5, Eos # (Auto) 0.2, Baso # (Auto) 0.1 08/23/20 12:55: PT 11.2, INR 0.95, APTT 25.1 08/23/20 12:55: Sodium 143, Potassium 3.9, Chloride 110 H, Carbon Dioxide 24, Anion Gap 12.9, BUN 11, Creatinine 0.60, Estimated Creat Clear 81, Estimated GFR 106, Est GFR ( Amer) 129, Glucose 163 H, Calcium 9.1, Total Bilirubin 0.4, AST 83 H, ALT 47, Alkaline Phosphatase 136 H, Troponin I < 0.01, NT-Pro-B Natriuret Pep 35.6, Total Protein 7.5, Albumin 4.2, Globulin 3.3 H, Albumin/Globulin Ratio 1.3, Lipase 123 08/23/20 16:30: Troponin I < 0.01 Result diagrams: 08/23/20 12:55 08/23/20 12:55 Orders (Tests/Meds): ED MEDICATIONS Discontinued Medications Generic Name Dose Route Start Last Admin Trade Name Freq PRN Reason Stop Dose Admin Morphine Sulfate 4 mg 08/23/20 15:18 08/23/20 15:29 Morphine 4mg/Ml Syringe IV 08/23/20 15:19 4 mg ONCE ONE Administration ORDERS Category Date Time Status Troponin I Q3H Lab 08/23/20 19:15 Ordered - Radiology Data #1 Image(s): Chest Image Reviewed: Yes I reviewed the patient's radiology results, Yes I discussed the image results w/the radiologist, Yes I reviewed the patient's radiology image w/the ED provider IMPRESSION: Opacity in the left base may represent atelectasis or pneumonia - ECG Data Tracing #1 No ventricular rate 82 bpm, prolonged QTC of 565 ms. Normal sinus rhythm with prolonged QTC, nonspecific changes. ECG initial impression date: 08/23/20 ECG initial impression time: 12:47 Normal Sinus Rhythm: Yes - Reevaluation(s) Time: 17:44 Reevaluation #1: On reevaluation, patient is feeling much better. She does have evidence of a infiltrate in the left lower lobe. Troponins are normal. There is low risk for acute coronary syndrome. Patient be placed on a short course antibiotics. Needs to follow-up with PCP. Given strict return precautions. Verbalized understanding. Medical Decision Narrative: This is a 50-year-old female presenting with nonspecific subacute chest discomfort. Patient's pain is improved at this time. Work-up initiated. Chest Pain HPI - General Dodie
--- NOTE | 2020-08-23 13:12 | PC.NURSE ---
Rad at bedside
[2020-08-23 13:17] LABS: Basophils # 0.1 K/mm3 (0-0.2); Basophils % 0.9 % (0.1-2.0); Eosinophils # 0.2 K/mm3 (0.0-0.4); Eosinophils % 2.2 % (0.1-12.0); Hematocrit 37.2 % (37.0-47.0); Hemoglobin 11.8 g/dL (12.2-16.2); Lymphocytes # 2.3 K/mm3 (0.7-4.5); Lymphocytes % 33.8 % (10-50); Mean Corpuscular HGB Conc 31.7 g/dL (31.8-35.4); Mean Corpuscular Hemoglobin 26.4 pg (27.0-31.2); Mean Corpuscular Volume 83.4 fl (81-99); Mean Platelet Volume 8.9 fl (7.4-10.4); Monocytes # 0.5 K/mm3 (0.1-1.0); Monocytes % 6.8 % (1.7-9.3); Neutrophils # 3.8 K/mm3 (1.8-7.8); Neutrophils % 56.3 % (37.0-80.0); Platelet Count 204 K/mm3 (142-424); Red Blood Count 4.46 M/mm3 (4.20-5.40); Red Cell Distribution Width 14.1 % (11.5-17.5); White Blood Count 6.8 K/mm3 (4.8-10.8)
[2020-08-23 13:22] LABS: Activated Partial Thrombo Time 25.1 seconds (22.8-30.6); Alanine Aminotransferase 47 U/L (12-78); Albumin Level 4.2 g/dl (3.5-5.0); Albumin/Globulin Ratio 1.3 (1.1-1.8); Alkaline Phosphatase 136 U/L (38-126); Anion Gap 12.9 mEq/L (5-15); Aspartate Amino Transferase 83 U/L (14-36); Bilirubin,Total 0.4 mg/dl (0.2-1.3); Blood Urea Nitrogen 11 mg/dl (7-17); Calcium 9.1 mg/dl (8.4-10.2); Carbon Dioxide 24 mmol/L (22.0-30.0); Chloride 110 mmol/L (98-107); Creatinine Clearance Estimated 81 mL/min (50-200); Estimated Glomerular Filt Rate 106 ml/min (>60); GFR (African American) 129 ML/MIN (>60); Globulin 3.3 g/dL (1.3-3.2); Glucose 163 mg/dl (74-100); INR 0.95 (0.9-1.1); Lipase 123 U/L (23-300); Potassium 3.9 mmoL/L (3.5-5.1); Prothrombin Time 11.2 seconds (10.1-12.5); Sodium 143 mmol/L (136-145); Total Protein,Serum 7.5 g/dl (6.3-8.2)
[2020-08-23 13:34] LABS: NT Pro Brain Natriuretic Pep. 35.6 pg/mL (0-125)
[2020-08-23 13:35] LABS: Troponin I < 0.01 ng/ml (0.00-0.034)
[2020-08-23 13:45] VITALS: BP 116/64; PULSE 79; O2SAT 95
[2020-08-23 14:31] VITALS: BP 138/81; PULSE 76; RESP 22; O2SAT 95
[2020-08-23 17:37] LABS: Troponin I < 0.01 ng/ml (0.00-0.034)
--- NOTE | 2020-08-23 17:53 | PC.NURSE ---
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
[2020-08-23 18:00] VITALS: BP 143/71; PULSE 87; RESP 17; TEMP 36.7; O2SAT 98
== END 2020-08-23 18:18 | disposition home or self-care (01) ==
PROVIDERS: Emergency Provider Emergency Medicine; PCP Emergency Medicine
DX: J18.9 Pneumonia, unspecified organism (principal); I50.9 Heart failure, unspecified; F41.8 Other specified anxiety disorders; E78.5 Hyperlipidemia, unspecified; I10 Essential (primary) hypertension; J44.9 Chronic obstructive pulmonary disease, unspecified; Z88.0 Allergy status to penicillin; Z88.8 Allergy status to other drugs, medicaments and biological substances; Z79.899 Other long term (current) drug therapy
CPT/HCPCS: 36415; 71045; 80053; 83690; 83880; 84484; 85025; 85610; 85730; 93005; 99282

== ENCOUNTER 2021-08-20 16:59 | Emergency (ER) | payer OTHER, SELFPAY ==
[2021-08-20 16:59] VITALS: BP 169/96; PULSE 72; RESP 16; TEMP 36.8; O2SAT 99; BMI 32.2
[2021-08-20 17:30] VITALS: BP 159/90; PULSE 74; RESP 18; O2SAT 98
[2021-08-20 18:00] VITALS: BP 165/93; PULSE 69; RESP 19; O2SAT 98
--- NOTE | 2021-08-20 18:09 | PC.NURSE ---
Notified lab of blood draw.
--- NOTE | 2021-08-20 18:15 | PC.NURSE ---
Pt up to bathroom. Ambulating on own with no issues
--- NOTE | 2021-08-20 18:46 | PC.NURSE ---
lab at bedside, attempting blood draw
--- NOTE | 2021-08-20 19:27 | PC.NURSE ---
PT ambulating to bathroom by herself, with no issues
[2021-08-20 19:34] LABS: Anion Gap 14.9 mEq/L (5-15); Blood Urea Nitrogen 10 mg/dl (7-17); Calcium 9.1 mg/dl (8.4-10.2); Carbon Dioxide 27 mmol/L (22.0-30.0); Chloride 103 mmol/L (98-107); Creatinine Clearance Estimated 114 mL/min (50-200); Estimated Glomerular Filt Rate 89 ml/min (>60); GFR (African American) 107 ML/MIN (>60); Glucose 101 mg/dl (74-100); Potassium 3.9 mmoL/L (3.5-5.1); Sodium 141 mmol/L (136-145)
[2021-08-20 19:37] LABS: HCG Qualitative, Serum Negative (Negative)
[2021-08-20 19:41] LABS: Basophils # 0.2 K/mm3 (0-0.2); Basophils % 2.5 % (0.1-2.0); Eosinophils # 0.2 K/mm3 (0.0-0.4); Eosinophils % 2.3 % (0.1-12.0); Hematocrit 42.1 % (37.0-47.0); Hemoglobin 13.5 g/dL (12.2-16.2); Lymphocytes # 2.9 K/mm3 (0.7-4.5); Lymphocytes % 34.5 % (10-50); Mean Corpuscular Volume 81.2 fl (81-99); Mean Platelet Volume 9.2 fl (7.4-10.4); Monocytes # 0.5 K/mm3 (0.1-1.0); Monocytes % 5.6 % (1.7-9.3); Neutrophils # 4.6 K/mm3 (1.8-7.8); Neutrophils % 55.2 % (37.0-80.0); Platelet Count 229 K/mm3 (142-424); Red Blood Count 5.19 M/mm3 (4.20-5.40); Red Cell Distribution Width 15.3 % (11.5-17.5); White Blood Count 8.3 K/mm3 (4.8-10.8)
[2021-08-20 19:48] LABS: Troponin I < 0.01 ng/ml (0.00-0.034)
--- NOTE | 2021-08-20 20:00 | ECG_ITS ---
APPROVED REPORT Exam: Resting ECG HR:68 bpm ECG Measurements Heart Rate 68 AXES SC 163 P 48 QRSd 93 QRS 15 QT 382 T 39 QTc 399 Conclusion SINUS RHYTHM LOW QRS VOLTAGE IN PRECORDIAL LEADS [QRS DEFLECTION < 1.0 mV IN CHEST LEADS] BORDERLINE ECG UNCONFIRMED REPORT Electronically signed by : Mario Sellers MD 08/22/2021 20:15:23
--- NOTE | 2021-08-20 20:14 | HMH.EDGENADL ---
ED Disposition Clinical Impression: Fall Qualifiers: Encounter type: initial encounter Qualified Code(s): W19.XXXA - Unspecified fall, initial encounter Chest pain Qualifiers: Chest pain type: unspecified Qualified Code(s): R07.9 - Chest pain, unspecified Disposition: Home, Self-Care Condition on Discharge: Good Additional Instructions: Continue home medication as previously directed. Drink plenty fluids, stay hydrated. Return with new or concerning symptoms. Referrals: Bin Benjamin MD [Primary Care Provider] - - Critical Care Critical Care Time: No Attestation: On 08/20/21, the high probability of a clinically significant, sudden or life threatening deterioration of the following system(s) required my full and direct attention, intervention and personal management. The time I documented below is in addition to time spent performing reported procedures but includes the following listed in this critical care notation. Medical Decision Making - Medical Records Medical records reviewed: Yes: I reviewed the patient's medical records. - Abhilash Inquiry Pt receiving controlled substance: No Vital Signs: 08/20/21 16:59 08/20/21 17:30 08/20/21 18:00 Temperature 98.3 F Temperature Source Oral Pulse Rate 74 69 Pulse Rate [Right] 72 Respiratory Rate 16 18 19 Blood Pressure 159/90 H 165/93 H Blood Pressure [Right Arm] 169/96 H Blood Pressure Mean 113 137 Blood Pressure Mean [Right Arm] 120 Blood Pressure Source [Right Arm] Automatic Cuff Blood Pressure Position [Right Arm] Sitting 02 Sat by Pulse Oximetry 99 98 98 Oxygen Delivery Method Room Air - Lab Data Lab Results 08/20/21 18:50: WBC 8.3, RBC 5.19, Hgb 13.5, Hct 42.1, MCV 81.2, MCH 26.0 L, MCHC 32.0, RDW 15.3, Plt Count 229, MPV 9.2, Neut % (Auto) 55.2, Lymph % (Auto) 34.5, [place] % (Auto) 5.6, Eos % (Auto) 2.3, Baso % (Auto) 2.5 H, Neut # (Auto) 4.6, Lymph # (Auto) 2.9, [place] # (Auto) 0.5, Eos # (Auto) 0.2, Baso # (Auto) 0.2 08/20/21 18:50: Sodium 141, Potassium 3.9, Chloride 103, Carbon Dioxide 27, Anion Gap 14.9, BUN 10, Creatinine 0.70, Estimated Creat Clear 114, Estimated GFR 89, Est GFR ( Amer) 107, Glucose 101 H, Calcium 9.1, Troponin I < 0.01 08/20/21 18:50: Serum HCG, Qual Negative Result diagrams: 08/20/21 18:50 08/20/21 18:50 Orders (Tests/Meds): ED MEDICATIONS Generic Name Dose Route Start Last Admin Trade Name Freq PRN Reason Stop Dose Admin Ondansetron HCl 4 mg 08/20/21 18:05 Ondansetron 4mg/2ml Vial IV 09/19/21 18:04 Q6 PRN Nausea And Vomiting ORDERS Category Date Time Status Troponin I Q3H Lab 08/20/21 21:15 Ordered Troponin I Q3H Lab 08/21/21 00:15 Ordered ECG Request by /Cm Stat Y 08/20/21 18:05 Ordered - ECG Data Tracing #1 I reviewed this ECG and interpreted as documented below: EKG normal sinus rhythm with a rate of 68, normal axis, no sign elevation or ST depression Medical Decision Narrative: 51-year-old female with history of bipolar disorder, hypertension presenting to the ED after fall with chest pain. Differential diagnoses include orthostatic hypotension, ACS, vasovagal syncope, lecture abnormalities, dehydration. Given this work-up will include CMP, CBC, troponin, EKG. Vital signs currently stable, patient is afebrile. Reassuring physical exam please see above. She is ambulating in the ED with no issues. EKG without evidence of ischemia, initial troponin less than 0.01, labs unremarkable nonactionable. She was given IV fluids and is tolerating p.o. intake. At this point she is okay for discharge, discussed return precautions and she is comfortable this plan. General Adult HPI - General Chief complaint: Dizziness Stated complaint: fall Time Seen by Provider: 08/20/21 20:14 Mode of Arrival: EMS Source of Information: Patient Limitations: No Limitations Description of Symptoms (Recalled from ER Triage Doc. by RN): pt c/o feeling
[2021-08-20 20:31] VITALS: BP 162/105; PULSE 74; RESP 16; TEMP 36.7; O2SAT 98
--- NOTE | 2021-08-20 20:36 | PC.NURSE ---
REPORT TO NORMA AT [facility].
== END 2021-08-20 20:36 | disposition home or self-care (01) ==
PROVIDERS: Emergency Provider Emergency Medicine; PCP Emergency Medicine
DX: R42 Dizziness and giddiness (principal); R07.9 Chest pain, unspecified; W19.XXXA Unspecified fall, initial encounter; I10 Essential (primary) hypertension; E78.5 Hyperlipidemia, unspecified; E03.9 Hypothyroidism, unspecified; J44.9 Chronic obstructive pulmonary disease, unspecified; Z79.899 Other long term (current) drug therapy
CPT/HCPCS: 36415; 80048; 84484; 84703; 85025; 93005; 99283